=== PATIENT | female | born 2000 | race African-American/Black ===

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

== ENCOUNTER 2020-01-12 21:47 | Emergency (ER) | payer OTHER, MEDICAID ==
[~2020-01-12] VITALS: Ht 154.9 cm; Wt 48.5 kg
[2020-01-12 23:43] VITALS: BP 125/77
== END 2020-01-13 00:06 | disposition home or self-care (01) ==
LOC: ER 21:47
DX: J06.9 Acute upper respiratory infection, unspecified (principal)
CPT/HCPCS: 71045

== ENCOUNTER 2023-12-28 12:22 | Emergency (ER) | payer MEDICAID ==
[~2023-12-28] VITALS: Ht 152.4 cm; Wt 42.2 kg
[2023-12-28 13:41] LABS: Basophils # (auto) 0 10 ^3/uL (0-0.2); Basophils % (auto) 0.3 % (0.0-2.0); Eosinophils # (auto) 0.1 10 ^3/uL (0-0.8); Eosinophils % (auto) 1.2 % (0.0-7.0); Hematocrit 35.6 % (36.0-46.0); Hemoglobin 12.3 g/dL (12.2-16.2); Lymphocytes # (auto) 1.5 10 ^3/uL (0.4-5.4); Mean Corpuscular Hemoglobin 32.2 pg (28.0-32.0); Mean Corpuscular Hgb Conc. 34.7 g/dL (32.0-36.0); Mean Corpuscular Volume 92.8 fL (80.0-100.0); Monocytes # (auto) 0.5 10 ^3/uL (0-1.3); Monocytes % (auto) 6.9 % (0.0-12.0); Neutrophils # (auto) 4.5 10 ^3/uL (1.6-8.6); Neutrophils % (auto) 68.6 % (37.0-80.0); Nucleated Red Blood Cells % 0.1 %; Platelet Count (auto) 343 10^3/uL (140-450); Red Blood Cells 3.83 10^6/uL (4.0-5.20); Red Cell Distribution Width 12.9 % (11.8-14.3); White Blood Cell 6.6 10^3/uL (4.4-10.8)
[2023-12-28 13:56] LABS: Alanine Aminotransferase 23 U/L (7-40); Albumin 4.4 g/dL (3.2-4.8); Alkaline Phosphatase 55 U/L (46-116); Anion Gap 7 (5-15); Aspartate Aminotransferase 14 U/L (13-40); BUN/Creatinine Ratio 16.3 (10.0-20.0); Blood Urea Nitrogen 8 mg/dL (9-23); Calcium 9.6 mg/dL (8.7-10.4); Carbon Dioxide 22 mmol/L (20-31); Chloride 107 mmol/L (98-107); Glucose 85 mg/dL (74-106); Potassium 3.6 mmol/L (3.5-5.1); Sodium 136 mmol/L (136-145)
[2023-12-28 13:57] LABS: Bilirubin, Total 1.2 mg/dL (0.2-1.0); Total Protein 7.2 g/dL (5.7-8.2)
[2023-12-28 14:22] VITALS: BP 112/73; PULSE 93; RESP 16; TEMP 98.7; O2SAT 100
== END 2023-12-28 14:28 | disposition home or self-care (01) ==
LOC: ER 12:22
DX: O99.411 Diseases of the circulatory system complicating pregnancy, first trimester (principal); R10.2 Pelvic and perineal pain; O99.891 Other specified diseases and conditions complicating pregnancy; R55 Syncope and collapse; Z3A.11 11 weeks gestation of pregnancy; Z88.0 Allergy status to penicillin; W18.09XA Striking against other object with subsequent fall, initial encounter; Y93.89 Activity, other specified; Y92.89 Other specified places as the place of occurrence of the external cause; Y99.8 Other external cause status
CPT/HCPCS: 36415; 76801; 80053; 82962; 84702; 85025; 93005

== ENCOUNTER → 2023-12-30 | Outpatient (CLI) | payer MEDICAID ==
[2023-12-30 12:45] LABS: Basophils # (auto) 0 10 ^3/uL (0-0.2); Basophils % (auto) 0.2 % (0.0-2.0); Eosinophils # (auto) 0.1 10 ^3/uL (0-0.8); Eosinophils % (auto) 1.6 % (0.0-7.0); Hematocrit 36.1 % (36.0-46.0); Hemoglobin 12.4 g/dL (12.2-16.2); Lymphocytes % (auto) 28.7 % (10.0-50.0); Mean Corpuscular Hemoglobin 31.9 pg (28.0-32.0); Mean Corpuscular Hgb Conc. 34.4 g/dL (32.0-36.0); Mean Corpuscular Volume 92.8 fL (80.0-100.0); Monocytes # (auto) 0.5 10 ^3/uL (0-1.3); Monocytes % (auto) 7.1 % (0.0-12.0); Neutrophils # (auto) 4.3 10 ^3/uL (1.6-8.6); Neutrophils % (auto) 62.4 % (37.0-80.0); Platelet Count (auto) 367 10^3/uL (140-450); Red Blood Cells 3.89 10^6/uL (4.0-5.20); Red Cell Distribution Width 13.3 % (11.8-14.3); White Blood Cell 6.9 10^3/uL (4.4-10.8)
[2023-12-30 13:43] LABS: Alanine Aminotransferase 28 U/L (7-40); Albumin 4.8 g/dL (3.2-4.8); Alkaline Phosphatase 59 U/L (46-116); Anion Gap 6 (5-15); Aspartate Aminotransferase 17 U/L (13-40); BUN/Creatinine Ratio 16.4 (10.0-20.0); Bilirubin, Total 1.5 mg/dL (0.2-1.0); Blood Urea Nitrogen 9 mg/dL (9-23); Calcium 10.2 mg/dL (8.7-10.4); Carbon Dioxide 25 mmol/L (20-31); Chloride 104 mmol/L (98-107); Glucose 72 mg/dL (74-106); Potassium 3.6 mmol/L (3.5-5.1); Sodium 135 mmol/L (136-145)
[2023-12-30 13:44] LABS: Total Protein 7.8 g/dL (5.7-8.2)
[2023-12-30 13:46] LABS: Thyroid Stimulating Hormone 1.03 uIU/mL (0.55-4.78)
[2023-12-30 13:53] LABS: Beta HCG, Quantitative 151954.5 mIU/mL (1.5-4.2)
[2023-12-30 14:16] LABS: Amphetamine Screen, Urine Neg (NEGATIVE); Barbiturate Scree,Urine Neg (NEGATIVE); Benzodiazephine Screen, Urine Neg (NEGATIVE); Cannabinoid Screen, Urine Neg (NEGATIVE); Cocaine Screen, Urine Neg (NEGATIVE); Opiate Scree,Urine Neg (NEGATIVE); Phencyclidine Screen, Urine Neg (NEGATIVE)
[2023-12-31 06:07] LABS: Varicella Zoster IgG Antibody Reactive (Non Reactive)
[2023-12-31 07:07] LABS: RPR Non Reactive (Non Reactive)
[2023-12-31 18:06] LABS: Chlamydia Trachomatis, NAA Negative (Negative); Neisseria gonorrhoeae, NAA Negative (Negative)
== END | disposition home or self-care (01) ==
LOC: LAB 11:36
PROVIDERS: ATTEND Obstetrics & Gynecology
DX: Z34.00 Encounter for supervision of normal first pregnancy, unspecified trimester (principal); Z36.0 Encounter for antenatal screening for chromosomal anomalies; N39.0 Urinary tract infection, site not specified
CPT/HCPCS: 36415; 80053; 80307; 83036; 84439; 84443; 84702; 85025; 86592; 86703; 86762; 86787; 86850; 86900; 86901; 87086; 87340; 87902

== ENCOUNTER 2024-03-14 12:32 | Observation (INO) | payer MEDICAID ==
[2024-03-14] MEDS ORDERED: PREN-96 PO (12:57)
--- NOTE | 2024-03-16 10:00 | DVHDS2 ---
Physician Discharge Progress N Final Diagnosis: feb movement Operations or Procedures: Operations or Procedures nst,sono Condition on Discharge: Good Disposition: Home Discharge Instructions: Diet: Regular Activity: No Restrictions, As Tolerated Medications: na Follow Up Care: Specialist: 2d Discharge Statement: "Patient was advised to return to the ER or call 911 if any headaches, dizziness, shortness of breath, chest pain, abdominal pain, bleeding, fevers, or worsening of medical condition. Patient was counseled about treatment plan, medications, possible side effects, patientverbalized understanding. All questions were answered to the best of my ability. This discharge took greater then 30 minutes in planning, reviewing documentation, counseling the patient, and discussing with other team members." GLENNJOSE DO Mar 16, 2024 10:00
== END 2024-03-14 13:23 | disposition home or self-care (01) ==
LOC: LDRP 12:32
PROVIDERS: ADMIT Obstetrics & Gynecology; ATTEND Obstetrics & Gynecology
DX: O36.8120 Decreased fetal movements, second trimester, not applicable or unspecified (principal); Z98.890 Other specified postprocedural states; Z79.899 Other long term (current) drug therapy; Z88.0 Allergy status to penicillin; Z88.8 Allergy status to other drugs, medicaments and biological substances; Z3A.21 21 weeks gestation of pregnancy
CPT/HCPCS: 59025; 81002; 94760; G0378

== ENCOUNTER → 2024-05-15 | Outpatient (CLI) | payer MEDICAID ==
[~2024-05-15] MED LIST: PREN-96 PO
[2024-05-15 10:21] LABS: Basophils # (auto) 0 10 ^3/uL (0-0.2); Basophils % (auto) 0.2 % (0.0-2.0); Eosinophils # (auto) 0.1 10 ^3/uL (0-0.8); Eosinophils % (auto) 1.4 % (0.0-7.0); Lymphocytes # (auto) 1.6 10 ^3/uL (0.4-5.4); Lymphocytes % (auto) 22.4 % (10.0-50.0); Mean Corpuscular Hemoglobin 30.9 pg (28.0-32.0); Mean Corpuscular Hgb Conc. 34.2 g/dL (32.0-36.0); Mean Corpuscular Volume 90.5 fL (80.0-100.0); Monocytes # (auto) 0.5 10 ^3/uL (0-1.3); Monocytes % (auto) 7.8 % (0.0-12.0); Neutrophils # (auto) 4.8 10 ^3/uL (1.6-8.6); Neutrophils % (auto) 68.2 % (37.0-80.0); Platelet Count (auto) 237 10^3/uL (140-450); Red Cell Distribution Width 12.9 % (11.8-14.3)
[2024-05-15 11:10] LABS: Alanine Aminotransferase 23 U/L (7-40); Anion Gap 9 (5-15); BUN/Creatinine Ratio 12.3 (10.0-20.0); Calcium 9.7 mg/dL (8.7-10.4); Carbon Dioxide 23 mmol/L (20-31); Chloride 102 mmol/L (98-107); Glucose 85 mg/dL (74-106); Potassium 4.1 mmol/L (3.5-5.1)
[2024-05-15 11:12] LABS: Albumin 4.4 g/dL (3.2-4.8); Aspartate Aminotransferase 20 U/L (13-40)
[2024-05-15 11:13] LABS: Bilirubin, Total 0.9 mg/dL (0.2-1.0); Total Protein 7.1 g/dL (5.7-8.2)
[2024-05-15 11:15] LABS: Alkaline Phosphatase 184 U/L (46-116); Blood Urea Nitrogen 7 mg/dL (9-23); Sodium 134 mmol/L (136-145)
[2024-05-16 08:07] LABS: RPR Non Reactive (Non Reactive)
[2024-05-17 00:06] LABS: Chlamydia Trachomatis, NAA Negative (Negative); Neisseria gonorrhoeae, NAA Negative (Negative)
== END | disposition home or self-care (01) ==
LOC: LAB 09:55
PROVIDERS: ATTEND Nurse Practitioner Women's Health
DX: Z34.00 Encounter for supervision of normal first pregnancy, unspecified trimester (principal); Z3A.00 Weeks of gestation of pregnancy not specified
CPT/HCPCS: 36415; 80053; 82306; 82951; 83036; 85025; 86592; 86850; 86900; 86901

== ENCOUNTER 2024-06-26 09:58 | Observation (INO) | payer MEDICAID ==
--- NOTE | 2024-06-26 11:08 | DVH ---
LIMITED OB ULTRASOUND > 14 WKS: HISTORY: Possible SROM TECHNIQUE: Multiple real-time grayscale images of the gravid uterus with duplex Doppler color flow an d M-mode spectral analysis. TRANSDUCER: Transabdominal. FINDINGS: IUP single live fetus at 34 weeks 4 days based on composite averages of the BPD, head circumference, abdominal circumference and femur length Estimated weight 2362 grams heart rate 124 beats per minute KALEB 12.5 cm Cervix not well visualized. Cephalic Presentation Fundal Placenta without previa or abruption. IMPRESSION: IUP single live fetus at 34 weeks 4 days AUA corresponding to an MCKAY of 08/03/24.
[2024-06-26 12:03] LABS: Vaginal Bacteria Few; Vaginal Clue Cells None Seen; Vaginal Epithelial Cells Few; Vaginal Trichomonas Not Present
[2024-06-26] MEDS ORDERED: HYDR-4902 PO (12:10)
--- NOTE | 2024-06-26 12:52 | DVHDS2 ---
Physician Discharge Progress N Final Diagnosis: intact amniotic membranes Operations or Procedures: Operations or Procedures S: 24yo IUP@36.1wks, pt sent down from [facility] OB office for r/o SROM. Pt reports LOF at 0815, clear fluid and leaking since. +FM, denies UCs/VB. Reports lower abdominal pressure and tightening. O: VSS UA wnl NST reactive GBS swab collected SSE by RN: negative nitrazine and pooling SVE by RN: 0/0/-3 Laboratory Tests Test 06/26/24 11:00 Range/Units Placental Ajadt-3-[id number] Negative Vaginal WBC (Wet Prep) Few Vaginal RBC (Wet Prep) Rare Vaginal Epithelial Cells (Wet Prep) Few Vaginal Bacteria (Wet Prep) Few Vaginal Trichomonas (Wet Prep) Not present Vaginal Yeast (Wet Prep) None seen Vaginal Clue Cells (Wet Prep) None seen A: 24yo IUP@36.1wks intact amniotic membranes P: D/C home FKC/PTL precautions reviewed Dr. Collier consulted, agrees with POC. Other Interventions Other Interventions [place] [address] Ph: [phone] DIAGNOSTIC IMAGING Diagnostic Imaging Report : [id number] Signed PATIENT: JIM VILLANUEVA ACCT: [id number] UNIT: [id number] : 2000 LOC: [facility] ROOM / BED: [address] A AGE / SEX: 24 / F ADM STATUS: ADM IN SERVICE 1017 ORDERING PHYSICIAN: VIOLA CIFUENTES CNM PROCEDURE(s): OBUS - OB ULTRASOUND COMP GTR 14 WKS REASON: Possible SROM ORDER NUMBER(s): [id number], ACCESSION NUMBER(s): [id number] LIMITED OB ULTRASOUND > 14 WKS: HISTORY: Possible SROM TECHNIQUE: Multiple real-time grayscale images of the gravid uterus with duplex Doppler color flow and M-mode spectral analysis. TRANSDUCER: Transabdominal. FINDINGS: IUP single live fetus at 34 weeks 4 days based on composite averages of the BPD, head circumference, abdominal circumference and femur length Estimated weight 2362 grams heart rate 124 beats per minute KALEB 12.5 cm Cervix not well visualized. Cephalic Presentation Fundal Placenta without previa or abruption. IMPRESSION: IUP single live fetus at 34 weeks 4 days AUA corresponding to an MCKAY of 08/03/24. ATED BY: BARAK TOMAS MD DICTATED DATE/TIME: 06/26/24 110 SIGNED BY: BARAK TOMAS MD SIGNED DATE/TIME: 06/26/24 110 CC: Condition on Discharge: Stable Disposition: Home Discharge Instructions: Diet: Regular Activity: No Restrictions, As Tolerated Medications: see med list Follow Up Care: Specialist: f/u with visits at [facility] as scheduled in 1 wk Discharge Statement: "Patient was advised to return to the ER or call 911 if any headaches, dizziness, shortness of breath, chest pain, abdominal pain, bleeding, fevers, or worsening of medical condition. Patient was counseled about treatment plan, medications, possible side effects, patientverbalized understanding. All questions were answered to the best of my ability. This discharge took greater then 30 minutes in planning, reviewing documentation, counseling the patient, and discussing with other team members." Visit Coding OBGYN Date of Service: Jun 26, 2024 Billing Provider: VIOLA CIFUENTES CNM HOSIERY PAIRER Common Visit Codes: 79662-CHFNUOP OBS CARE (LOW) HOSIERY PAIRER Procedure Codes: 76287-43- NON-STRESS TEST VIOLA CIFUENTES CNM Jun 26, 2024 12:52
== END 2024-06-26 12:38 | disposition home or self-care (01) ==
LOC: LDRP 09:58 → UNDOADMOB 09:58 → LDRP 10:14
PROVIDERS: ADMIT Obstetrics & Gynecology; ATTEND Obstetrics & Gynecology
DX: O42.913 Preterm premature rupture of membranes, unspecified as to length of time between rupture and onset of labor, third trimester (principal); O62.9 Abnormality of forces of labor, unspecified; Z98.890 Other specified postprocedural states; Z79.899 Other long term (current) drug therapy; Z3A.36 36 weeks gestation of pregnancy
CPT/HCPCS: 59025; 76805; 81002; 84112; 87070; 87210; 94760; G0378

== ENCOUNTER 2024-07-03 02:41 | Observation (INO) | payer MEDICAID ==
[~2024-07-03] VITALS: Ht 152.4 cm; Wt 58.5 kg
--- NOTE | 2024-07-03 05:45 | DVHDS2 ---
Discharge Summary Date of Admission Jul 03, 2024 at 02:41 Date of Discharge: Jul 03, 2024 Admitting Diagnosis rule out labor Brief Hx & Hospital Course: Patient walked no change Condition at Discharge: Good Final Diagnosis/Problems List contractions 37 weeks no labor Discharge Disposition: Home Discharge Instruct/Medications Diet: Regular Activity: No Restrictions, As Tolerated Activity comment: Kick counts labor precautions Follow Up/Referral: prn or this week Discharge Statement: "Patient was advised to return to the ER or call 911 if any headaches, dizziness, shortness of breath, chest pain, abdominal pain, bleeding, fevers, or worsening of medical condition. Patient was counseled about treatment plan, medications, possible side effects, patientverbalized understanding. All questions were answered to the best of my ability. This discharge took greater then 30 minutes in planning, reviewing documentation, counseling the patient, and discussing with other team members." ASSESSMENT ASSESSMENT Assessment Visit Coding OBGYN Date of Service: Jul 03, 2024 Billing Provider: GONZÁLEZ MOJICA DO CENTER RECEPTIONIST Common Visit Codes: [id number] INP/OBS CARE(HIGH), 39287-SNA/OBS SAME DATE (LOW), 91823-HCJ/OBS SAME DATE (MOD) CENTER RECEPTIONIST Procedure Codes: 84768-20- NON-STRESS TEST GONZÁLEZ MOJICA DO Jul 03, 2024 05:45
== END 2024-07-03 05:21 | disposition home or self-care (01) ==
LOC: LDRP 02:41
PROVIDERS: ADMIT Obstetrics & Gynecology; ATTEND Obstetrics & Gynecology
DX: O62.9 Abnormality of forces of labor, unspecified (principal); Z79.899 Other long term (current) drug therapy; Z3A.37 37 weeks gestation of pregnancy
CPT/HCPCS: 81002; 94760; G0378

== ENCOUNTER 2024-07-04 18:30 | Observation (INO) | payer MEDICAID ==
[~2024-07-04] VITALS: Ht 154.9 cm; Wt 58.5 kg
--- NOTE | 2024-07-04 20:06 | DVH ---
OB ULTRASOUND <14 WEEKS: HISTORY: vaginal bleeding TECHNIQUE: Multiple real-time grayscale sonographic images of the pelvis with duplex Doppler color f low, spectral and M-mode analysis. TRANSDUCERS: C4-1 COMPARISON: None FINDINGS/IMPRESSION : Single live . Cephalic presentation. Placenta in fundal location. heart rate measures 118 beats per minute. Current KALEB: 10.9 cm. No placenta previa, abruption, or accreta seen at this time.
--- NOTE | 2024-07-07 08:18 | DVHDS2 ---
Physician Discharge Progress N Final Diagnosis: vag bleeding 37wks Operations or Procedures: Operations or Procedures nst,sono Condition on Discharge: Good Disposition: Home Discharge Instructions: Diet: Regular Activity: No Restrictions, As Tolerated Follow Up/Referral: KEEP CURRENT APPOINTMENT AT DR BAILEY OFFICE Medications: CONTINUE TAKING ALL CURRENT MEDICATIOS PREVISOUSLY PRESCRIBED BY DR BAILEY OFFICE. Follow Up Care: Specialist: 1d Discharge Statement: "Patient was advised to return to the ER or call 911 if any headaches, dizziness, shortness of breath, chest pain, abdominal pain, bleeding, fevers, or worsening of medical condition. Patient was counseled about treatment plan, medications, possible side effects, patientverbalized understanding. All questions were answered to the best of my ability. This discharge took greater then 30 minutes in planning, reviewing documentation, counseling the patient, and discussing with other team members." Visit Coding OBGYN Date of Service: Jul 05, 2024 Billing Provider: JOSE ELIZABETH DO PRINCIPAL ANDROID DEVELOPER Common Visit Codes: [id number] INP/OBS CARE (HIGH) PRINCIPAL ANDROID DEVELOPER Procedure Codes: 52942-15- NON-STRESS TEST JOSE ELIZABETH DO Jul 07, 2024 08:18
== END 2024-07-04 19:45 | disposition home or self-care (01) ==
LOC: LDRP 18:30
PROVIDERS: ADMIT Obstetrics & Gynecology; ATTEND Obstetrics & Gynecology
DX: O46.93 Antepartum hemorrhage, unspecified, third trimester (principal); Z3A.37 37 weeks gestation of pregnancy
CPT/HCPCS: 59025; 76815; 94760; G0378

== ENCOUNTER 2024-07-12 01:40 | Observation (INO) | payer MEDICAID ==
[~2024-07-12] VITALS: Ht 154.9 cm; Wt 59.0 kg
[2024-07-12] MEDS: ACETAMINOPHEN 325 MG TAB PO ONE (03:15)
[2024-07-12 03:36] LABS: Basophils # (auto) 0 10 ^3/uL (0-0.2); Basophils % (auto) 0.3 % (0.0-2.0); Eosinophils # (auto) 0.2 10 ^3/uL (0-0.8); Eosinophils % (auto) 2.3 % (0.0-7.0); Hematocrit 39.5 % (36.0-46.0); Hemoglobin 13.9 g/dL (12.2-16.2); Lymphocytes # (auto) 2.6 10 ^3/uL (0.4-5.4); Lymphocytes % (auto) 30.9 % (10.0-50.0); Mean Corpuscular Hemoglobin 31.3 pg (28.0-32.0); Mean Corpuscular Hgb Conc. 35.2 g/dL (32.0-36.0); Mean Corpuscular Volume 88.8 fL (80.0-100.0); Monocytes # (auto) 0.4 10 ^3/uL (0-1.3); Neutrophils # (auto) 5.2 10 ^3/uL (1.6-8.6); Neutrophils % (auto) 61.5 % (37.0-80.0); Nucleated Red Blood Cells % 0.1 %; Platelet Count (auto) 247 10^3/uL (140-450); Red Blood Cells 4.45 10^6/uL (4.0-5.20); Red Cell Distribution Width 13.1 % (11.8-14.3); White Blood Cell 8.5 10^3/uL (4.4-10.8)
[2024-07-12 03:39] LABS: Urine Bacteria FEW /hpf (None Seen); Urine Blood Negative /uL (Negative); Urine Clarity Clear (Clear); Urine Color Colorless (Yellow); Urine Protein, UAD Negative (Negative); Urine Specific Gravity 1.006 (1.001-1.035); Urine Squamous Epithelial Cell None Seen /hpf (<5); Urine Urobilinogen Normal (Negative); Urine WBC < 1 /HPF (0-5); Urine pH 6.5 (5.0-9.0)
[2024-07-12 03:40] LABS: Protein, Urine < 6.0 mg/dL (1-14)
[2024-07-12 03:41] LABS: Creatinine, Urine 22.13 mg/dL (30.0-125.0); Urine Protein/Creatinine Ratio 0.27
[2024-07-12 03:44] LABS: Alanine Aminotransferase 22 U/L (7-40); Albumin 4.3 g/dL (3.2-4.8); Anion Gap 9 (5-15); Aspartate Aminotransferase 25 U/L (13-40); BUN/Creatinine Ratio 15.5 (10.0-20.0); Bilirubin, Total 0.7 mg/dL (0.2-1.0); Blood Urea Nitrogen 11 mg/dL (9-23); Calcium 9.9 mg/dL (8.7-10.4); Carbon Dioxide 21 mmol/L (20-31); Chloride 105 mmol/L (98-107); Glucose 83 mg/dL (74-106); Potassium 4.2 mmol/L (3.5-5.1); Total Protein 7.4 g/dL (5.7-8.2); Uric Acid 8.7 mg/dL (3.1-7.8)
[2024-07-12 03:48] LABS: Alkaline Phosphatase 352 U/L (46-116); Sodium 135 mmol/L (136-145)
[2024-07-12 03:54] LABS: INR 0.9 (0.9-1.15); Partial Thromboplastin Time 23.9 SEC (24.5-34.5); Prothrombin Time 9.6 sec (9.3-11.8)
[2024-07-12 04:34] LABS: Amphetamine Screen, Urine Neg (NEGATIVE); Benzodiazephine Screen, Urine Neg (NEGATIVE)
[2024-07-12 04:35] LABS: Barbiturate Scree,Urine Neg (NEGATIVE); Cannabinoid Screen, Urine Neg (NEGATIVE); Cocaine Screen, Urine Neg (NEGATIVE); Opiate Scree,Urine Neg (NEGATIVE); Phencyclidine Screen, Urine Neg (NEGATIVE)
--- NOTE | 2024-07-12 05:08 | DVH ---
BIOPHYSICAL PROFILE HISTORY: Rule Out Preeclampsia Comparison Study: 07/04/2024 TECHNIQUE: Multiple real-time grayscale sonographic images through the gravid uterus of the fetus wi th duplex Doppler color flow and M-mode spectral analysis FINDINGS: BIOPHYSICAL PROFILE: breathing score: 2 movement score: 2 tone score: 2 Quantitative KALEB score: 2 (KALEB: 8.4 Cm.) Total score: 8 The cervix is not visualized Single live fetus in cephalic presentation. heart rate 123 beats per minute. Fundal placenta without previa or abruption IMPRESSION: Biophysical profile score: 8
--- NOTE | 2024-07-12 12:30 | DVHDS2 ---
Physician Discharge Progress N Final Diagnosis: Not in labor francisca garcia contractions Operations or Procedures: Operations or Procedures S: 24yo IUP@38.3wks presents to OB triage with c/o UCs that started tonight. Denies LOF/VB/vision changes/RUQ pain. Endorses +FM. PNC at [facility] OB office, uncomplicated. O: VSS, normotensive EFM: FHR baseline 120s, moderate variability, +accels, -decels TOCO: irregular UCs Tylenol PO given, REED resolved per pt SVE by RN: initially 60-70/-2 then ambulated for 1 hour and recheck was unchanged Urine P/C ratio is incalculable Laboratory Tests Test 07/12/24 01:40 07/12/24 03:10 Range/Units Urine Color Colorless Yellow Urine Clarity Clear Clear Urine pH 6.5 5.0-9.0 Urine Specific [place] 1.006 1.001-1.035 Urine Protein Negative Negative Urine Ketones Negative Negative Urine Blood Negative Negative /uL Urine Nitrite Negative Negative Urine Bilirubin Negative Negative Urine Urobilinogen Normal Negative mg/dL Urine Leukocyte Esterase Negative Negative /uL Urine RBC None seen 0 - 4 /hpf Urine Microscopic WBC < 1 0-5 /HPF Urine Squamous Epithelial Cells None seen <5 /hpf Urine Bacteria Few H None Seen /hpf Urine Creatinine 22.13 L 30.0-125.0 mg/dL -U-r-i-n-e- -K-z-t-t-e-i-n-/-C--n-h-w-y-r-g-i-n-e- -R-a-t-i-o- -0-.-2-7- Urine Glucose Normal Normal mg/dL Urine Total Protein < 6.0 1-14 mg/dL Urine Opiates Screen Neg NEGATIVE Urine Fentanyl Screen Neg NEGATIVE Urine Barbiturates Screen Neg NEGATIVE Urine Phencyclidine Screen Neg NEGATIVE Urine Amphetamines Screen Neg NEGATIVE Urine Benzodiazepines Screen Neg NEGATIVE Urine Cocaine Screen Neg NEGATIVE Urine Cannabinoids Screen Neg NEGATIVE White Blood Count 8.5 4.4-10.8 10^3/uL Red Blood Count 4.45 4.0-5.20 10^6/uL Hemoglobin 13.9 12.2-16.2 g/dL Hematocrit 39.5 36.0-46.0 % Mean Corpuscular Volume 88.8 80.0-100.0 fL Mean Corpuscular Hemoglobin 31.3 28.0-32.0 pg Mean Corpuscular Hemoglobin Concent 35.2 32.0-36.0 g/dL Red Cell Distribution Width 13.1 11.8-14.3 % Platelet Count 247 140-450 10^3/uL Mean Platelet Volume 8.8 6.9-10.8 fL Neutrophils (%) (Auto) 61.5 37.0-80.0 % Lymphocytes (%) (Auto) 30.9 10.0-50.0 % Monocytes (%) (Auto) 5.0 0.0-12.0 % Eosinophils (%) (Auto) 2.3 0.0-7.0 % Basophils (%) (Auto) 0.3 0.0-2.0 % Neutrophils # (Auto) 5.2 1.6-8.6 10 ^3/uL Lymphocytes # (Auto) 2.6 0.4-5.4 10 ^3/uL Monocytes # (Auto) 0.4 0-1.3 10 ^3/uL Eosinophils # (Auto) 0.2 0-0.8 10 ^3/uL Basophils # (Auto) 0 0-0.2 10 ^3/uL Nucleated Red Blood Cells 0.1 % Prothrombin Time 9.6 9.3-11.8 sec Prothrombin Time INR 0.90 0.9-1.15 Activated Partial Thromboplast Time 23.9 L 24.5-34.5 SEC Sodium Level 135 L 136-145 mmol/L Potassium Level 4.2 3.5-5.1 mmol/L Chloride Level 105 98-107 mmol/L Carbon Dioxide Level 21 20-31 mmol/L Anion Gap 9 5-15 Blood Urea Nitrogen 11 9-23 mg/dL Creatinine 0.71 0.550-1.02 mg/dL Glomerular Filtration Rate Calc 121 >90 mL/min BUN/Creatinine Ratio 15.5 10.0-20.0 Serum Glucose 83 74-106 mg/dL Uric Acid 8.7 H 3.1-7.8 mg/dL Calcium Level 9.9 8.7-10.4 mg/dL Total Bilirubin 0.7 0.2-1.0 mg/dL Aspartate Amino Transferase (AST) 25 13-40 U/L Alanine Aminotransferase (ALT) 22 7-40 U/L Alkaline Phosphatase 352 H 46-116 U/L Total Protein 7.4 5.7-8.2 g/dL Albumin 4.3 3.2-4.8 g/dL A: 24yo IUP@38.3wks Category I EFM tracing Not in labor francisca garcia contractions P: D/C home FKC/PreE/labor precautions reviewed Other Interventions Other Interventions [place] [id number] Ph: [phone] DIAGNOSTIC IMAGING Diagnostic Imaging Report : [id number] Signed PATIENT: JIM VILLANUEVA ACCT: [id number] UNIT: [id number] : 2000 LOC: [facility] ROOM / BED: [facility] / A AGE / SEX: 24 / F ADM STATUS: ADM IN SERVICE 7 ORDERING PHYSICIAN: VIOLA CIFUENTES CNM PROCEDURE(s): BPP - BIOPHYSICAL PROFILE REASON: Rule Out Preeclampsia ORDER NUMBER(s): [id number], ACCESSION NUMBER(s): [id number] BIOPHYSICAL PROFILE HISTORY: Rule Out Preeclampsia Comparison Study: 07/04/2024 TECHNIQUE: Multiple real-time grayscale sonographic images through the gravid uterus of the fetus with duplex Doppler color flow and M-mode spectral analysis FINDINGS: BIOPHYSICAL PROFILE: breathing score: 2 movement score: 2 tone score: 2 Quantitative KALEB score: 2 (KALEB: 8.4 Cm.) Total score: 8 The cervix is not visualized Single live fetus in cephalic presentation. heart rate 123 beats per minute. Fundal placenta without previa or abruption IMPRESSION: Biophysical profile score: 8 ATED BY: ROGERIO ARIZA MD DICTATED DATE/TIME: 07/12/24504 SIGNED BY: ROGERIO ARIZA MD SIGNED DATE/TIME: 07/12/24504 CC: Condition on Discharge: Stable Disposition: Home Discharge Instructions: Diet: Regular Activity: No Restrictions, As Tolerated Medications: see med list Follow Up Care: Specialist: f/u on 07/16/24 morning with 24 hour urine collection to check protein levels and NST/BPP Discharge Statement: "Patient was advised to return to the ER or call 911 if any headaches, dizziness, shortness of breath, chest pain, abdominal pain, bleeding, fevers, or worsening of medical condition. Patient was counseled about treatment plan, medications, possible side effects, patientverbalized understanding. All questions were answered to the best of my ability. This discharge took greater then 30 minutes in planning, reviewing documentation, counseling the patient, and discussing with other team members." Visit Coding OBGYN Date of Service: Jul 12, 2024 Billing Provider: VIOLA CIFUENTES CNM BODY SHOP WORKER Common Visit Codes: 54246-[id number] OBS CARE (HIGH) BODY SHOP WORKER Procedure Codes: 45999-79- NON-STRESS TEST VIOLA CIFUENTES CNM Jul 12, 2024 12:30
[2024-07-18] MEDS ORDERED: PREN-96 PO (00:44)
[2024-07-18] MEDS ORDERED: IBU600T PO (00:44)
[2024-07-18] MEDS ORDERED: PRENCAP69 PO (00:44)
== END 2024-07-12 05:21 | disposition home or self-care (01) ==
LOC: LDRP 01:40
PROVIDERS: ADMIT Obstetrics & Gynecology; ATTEND Obstetrics & Gynecology
DX: O47.1 False labor at or after 37 completed weeks of gestation (principal); R79.1 Abnormal coagulation profile; Z98.890 Other specified postprocedural states; Z79.899 Other long term (current) drug therapy; Z3A.38 38 weeks gestation of pregnancy
CPT/HCPCS: 36415; 59025; 76819; 80053; 80307; 81001; 81002; 82570; 84156; 84550; 85025; 85610; 85730; 86850; 86900; 86901; 94760; G0378

== ENCOUNTER 2024-07-16 07:00 | Inpatient (IN) | payer MEDICAID ==
[~2024-07-16] VITALS: Ht 33 cm; Wt 0.5 kg
[2024-07-16 13:51] LABS: Urine Bacteria FEW /hpf (None Seen); Urine Blood Negative /uL (Negative); Urine Clarity Turbid (Clear); Urine Color Yellow (Yellow); Urine Protein, UAD TRACE (Negative); Urine Squamous Epithelial Cell FEW /hpf (<5); Urine Urobilinogen Normal (Negative); Urine WBC 2 /HPF (0-5); Urine pH 6.5 (5.0-9.0)
[2024-07-16 14:04] LABS: Protein, Urine 26.1 mg/dL (1-14)
[2024-07-16 14:06] LABS: Creatinine, Urine 140.65 mg/dL (30.0-125.0); Urine Protein/Creatinine Ratio 0.19
--- NOTE | 2024-07-16 14:06 | DVH ---
BIOPHYSICAL PROFILE HISTORY: PIH TECHNIQUE: Multiple transabdominal real-time grayscale sonographic images through the gravid uterus of the fetus with duplex Doppler color flow and M-mode spectral analysis FINDINGS: BIOPHYSICAL PROFILE: breathing score: 2/2 movement score: 2/2 tone score: 2/2 Quantitative KALEB score: 2/2 (KALEB: 8.6 Cm.) Total score: 8/8 The cervix close Single live fetus in cephalic presentation. heart rate 144 beats per minute. Fundal placenta without previa or abruption IMPRESSION: 1. Biophysical profile score: 8/8 2. The amniotic fluid index is decreased slightly from previous exam done 07/04/2024 from 10.9 cm 28. 6 cm.
[2024-07-16 14:12] LABS: Basophils # (auto) 0 10 ^3/uL (0-0.2); Basophils % (auto) 0.3 % (0.0-2.0); Eosinophils # (auto) 0.1 10 ^3/uL (0-0.8); Eosinophils % (auto) 1.8 % (0.0-7.0); Hematocrit 38.6 % (36.0-46.0); Hemoglobin 13.4 g/dL (12.2-16.2); Lymphocytes # (auto) 1.8 10 ^3/uL (0.4-5.4); Lymphocytes % (auto) 32.5 % (10.0-50.0); Mean Corpuscular Hgb Conc. 34.7 g/dL (32.0-36.0); Mean Corpuscular Volume 89.4 fL (80.0-100.0); Monocytes # (auto) 0.5 10 ^3/uL (0-1.3); Monocytes % (auto) 8.2 % (0.0-12.0); Neutrophils # (auto) 3.2 10 ^3/uL (1.6-8.6); Neutrophils % (auto) 57.2 % (37.0-80.0); Nucleated Red Blood Cells % 0.1 %; Platelet Count (auto) 209 10^3/uL (140-450); Red Blood Cells 4.31 10^6/uL (4.0-5.20); Red Cell Distribution Width 13.2 % (11.8-14.3); White Blood Cell 5.5 10^3/uL (4.4-10.8)
[2024-07-16 14:30] LABS: INR 0.92 (0.9-1.15); Partial Thromboplastin Time 24.5 SEC (24.5-34.5); Prothrombin Time 9.8 sec (9.3-11.8)
[2024-07-16 14:34] LABS: Alanine Aminotransferase 22 U/L (7-40); Albumin 3.9 g/dL (3.2-4.8); Anion Gap 8 (5-15); Aspartate Aminotransferase 26 U/L (13-40); BUN/Creatinine Ratio 14.9 (10.0-20.0); Blood Urea Nitrogen 11 mg/dL (9-23); Calcium 9.4 mg/dL (8.7-10.4); Carbon Dioxide 23 mmol/L (20-31); Chloride 106 mmol/L (98-107); Potassium 4.2 mmol/L (3.5-5.1); Sodium 137 mmol/L (136-145); Total Protein 6.5 g/dL (5.7-8.2)
[2024-07-16 14:35] LABS: Bilirubin, Total 0.8 mg/dL (0.2-1.0)
[2024-07-16 14:38] LABS: Alkaline Phosphatase 354 U/L (46-116); Glucose 60 mg/dL (74-106); Uric Acid 9.8 mg/dL (3.1-7.8)
[2024-07-16 14:41] LABS: Protein, Urine < 6.0 mg/dL (1-14)
[2024-07-16 14:43] LABS: Urine Total Volume, 24 Hours 4700 mL
[2024-07-16] MEDS ORDERED: LIDOCAINE 2%HCL (LOCAL ANESTH.) INJ 20ML MDV IJ PRN (15:15)
[2024-07-16] MEDS ORDERED: BUTORPHANOL TARTRATE 2 MG/1 ML VIAL IV PRN ×2 (15:15)
[2024-07-16] MEDS ORDERED: PENICILLIN G POT 5MIL/D5 50ML 50 ML IV ONE (15:30)
[2024-07-16] MEDS: PHISODERM TOP SOLN 240ML BTL TOP PRN (19:30)
[2024-07-16] MEDS ORDERED: PENICILLIN G POTASSIUM 2,500,000 UNITS in D5W 5% 50 ML IV SCH (19:30)
[2024-07-16] MEDS: WITCH HAZEL-GLYCERIN PAD TOP PRN (19:30)
[2024-07-16] MEDS: miSOPROStol 50 MCG per PRE-CUT 1/2 TAB PO PRN (19:30)
[2024-07-16] MEDS: DERMOPLAST 60ML BOTTLE TOP PRN (19:30)
--- NOTE | 2024-07-16 22:38 | DVHHP2 ---
OB CC & HPI Patient Identification: : 1 Para: 0 EDC: July 23, 2024 EGA: 39 Chief Complaints: Reason for admission: induction of labor (pih) Indication for induction: other (pih) Admission Nurse Assessment Rev: Yes Past Medical History Cardiac: No pertinent Hx Pulmonary: No pertinent Hx Central Nervous System: No pertinent Hx GI: No pertinent Hx Hemotology/Oncology: No pertinent Hx Hepatobiliary: No pertinent Hx Psychiatric: No pertinent Hx Musculoskeletal: No pertinent Hx Rheumotologic: No pertinent Hx Infectious Disease: No peritnent Hx ENT: No pertinent Hx Renal/: No pertinent Hx Endocrine: No pertinent Hx Dermatology: No pertinent Hx OB History OB History Care: Good Care Obstetrical Complications: Pre-eclampsia Allergies: Coded Allergies: Amoxicillin (Verified Allergy, Unknown, 11/18/16) Penicillins (Verified Allergy, Unknown, 11/18/16) Home Meds Reported Medications Vit W/ Ferrous Fumara ( One Daily) Daily Tab, 1 TAB PO DAILY, #90 TAB 3 Refills 03/14/24 Current Medications Current Medications Medications (Trade) Dose Ordered Sig/Lala Route PRN Reason Start Time Stop Time Status Last Admin Lactated Ringer's 1,000 ml @ 125 mls/hr Q8H IV 07/16/24 15:15 Witch Maci (Tucks) 1 pad PRN PRN TOP PERINEAL AREA DISCOMFORT 07/16/24 15:15 07/16/24 19:30 Sodium Lauryl Sulfate (Phisoderm) 240 ml PRN PRN TOP PERINEAL AREA DISCOMFORT 07/16/24 15:15 07/16/24 19:30 Benzocaine (Dermoplast) 1 applic PRN PRN TOP PERINEAL AREA DISCOMFORT 07/16/24 15:15 07/16/24 19:30 Butorphanol Tartrate (Stadol Injection) 1 mg Q4HPRN PRN IV MODERATE PAIN (4-6 PAIN SCALE) 07/16/24 15:15 Butorphanol Tartrate (Stadol Injection) 2 mg Q4HPRN PRN IV SEVERE PAIN (7-10 PAIN SCALE) 07/16/24 15:15 Lidocaine HCl (Xylocaine) 20 ml ONCE PRN IJ PERINEAL AREA DISCOMFORT 07/16/24 15:15 Penicillin G Potassium [id number] units/Dextrose 50 ml @ 100 mls/hr Q4H IV 07/16/24 19:30 UNV Clindamycin Phosphate 50 ml @ 50 mls/hr Q8HR IV 07/16/24 22:00 Misoprostol (Cytotec) 50 mcg Q4HPRN PRN PO CERVICAL RIPENING 07/16/24 17:45 07/16/24 19:30 Family & Social History Family/Social History Blood Type: A+ Rubella: immune RPR/VDRL: Negative GBS Status: Unknown HBsAG: Unknown Review of Systems Constitutional: No symptom reported Ears, Nose, & Throat: No symptom reported Eyes: No symptom reported Pulmonary/Respiratory: No symptom reported Cardiovascular: No symptom reported Gastrointestinal: No symptom reported Genitourinary: No symptom reported Musculoskeletal: No symptom reported Skin: No symptom reported Psychiatric: No symptom reported Endocrine: No symptom reported Hemotologic/Lymphatic: No symptom reported OB Admission Exam Physical Exam HEENT: TMs Normal, Fontanelles Normal, Nasal Mucosa Normal, Eyes non-injected, Oropharynx Normal, PERRLA, Moist Membranes, EOMI Heart: Rhythm Normal Lungs: Clear Abdomen: Non tender Extremities: Normal Reflexes: Normal Cervical Dilatation: 2cm Effacement: 50% Station: -1 Membranes: Intact Heart Rate: 130's Accelerations: Accelerations Present Decelerations: No Decelerations Short Term Variability: Present [facility] Variability: Average (6-25) Contractions on Admission: None Intensity: Mild OB Plan Plan Admitting Diagnosis: induction for pih 39 weeks. Plan: Induction Induction Methd: Cervidal protocol, Prostin protocol Other Plan: Cytotec induction, risks benefits complications alternatives discussed as also the risks of increase for C section and associated risks. Visit Coding OBGYN Date of Service: Jul 16, 2024 Billing Provider: GONZÁLEZ MOJICA DO WOODS RIDER Common Visit Codes: 35870-KBC/OBS SAME DATE (HIGH) WOODS RIDER Consultation Codes: 27626-L/U INPATIENT CONSULT (HIGH) WOODS RIDER Procedure Codes: 47042-19- NON-STRESS TEST GONZÁLEZ MOJICA DO Jul 16, 2024 22:38
[2024-07-17] MEDS: LACTATED RINGER'S 1,000 ML IV SCH (01:06)
--- NOTE | 2024-07-17 06:09 | DVHPN2 ---
Chief Complaints Patient reports: No new complaints, Feels better Nursing reports: No new complaints, No abdominal pain, No chest pain, No dizziness, No cough Objective Medications Current Medications Medications (Trade) Dose Ordered Sig/Lala Route PRN Reason Start Time Stop Time Status Last Admin Benzocaine (Dermoplast) 1 applic PRN PRN TOP PERINEAL AREA DISCOMFORT 07/16/24 15:15 07/16/24 19:30 Butorphanol Tartrate (Stadol Injection) 1 mg Q4HPRN PRN IV MODERATE PAIN (4-6 PAIN SCALE) 07/16/24 15:15 Butorphanol Tartrate (Stadol Injection) 2 mg Q4HPRN PRN IV SEVERE PAIN (7-10 PAIN SCALE) 07/16/24 15:15 Clindamycin Phosphate 50 ml @ 50 mls/hr Q8HR IV 07/16/24 22:00 Lactated Ringer's 1,000 ml @ 125 mls/hr Q8H IV 07/16/24 15:15 07/17/24 01:06 Lidocaine HCl (Xylocaine) 20 ml ONCE PRN IJ PERINEAL AREA DISCOMFORT 07/16/24 15:15 Misoprostol (Cytotec) 50 mcg Q4HPRN PRN PO CERVICAL RIPENING 07/16/24 17:45 07/17/24 02:05 Penicillin G Potassium [id number] units/Dextrose 50 ml @ 100 mls/hr Q4H IV 07/16/24 19:30 UNV Sodium Lauryl Sulfate (Phisoderm) 240 ml PRN PRN TOP PERINEAL AREA DISCOMFORT 07/16/24 15:15 07/16/24 19:30 Sal Wallerel (Tucks) 1 pad PRN PRN TOP PERINEAL AREA DISCOMFORT 07/16/24 15:15 07/16/24 19:30 General: Normal Lungs: Normal Cardiovascular: Normal Abdominal: Normal Extremities: Normal Skin: Normal Neurological: Normal Studies Laboratory Tests 07/16/24 13:53 Test 07/16/24 13:53 Range/Units Serum Glucose 60 L 74-106 mg/dL Ass/Plan Assessment Hospital day 2 induction PIH Plan Repeat Cytotec and/or Pitocin GONZÁLEZ MOJICA DO Jul 17, 2024 06:09
--- NOTE | 2024-07-17 07:37 | DVHPN2 ---
CNM Labor Progress Note Date and Time Seen Date Seen: Jul 17, 2024 Time Seen: 07:30 Subjective Subjective Comment Pt has mild UC pain, tolerable. Denies REED/vision changes/RUQ pain. Objective Vital Signs VSS, see CPN Monitoring Method Monitoring Method: External Heart Rate Heart Rate Baseline: 120 Heart Rate Variability: Moderate Presence of FHR Accelerations: Yes Presence of FHR Decelerations: No Changes in Trends of Patterns: No Are all 5 Components of the FH: Yes Contractions Contractions Frequency: Other (q5 min) Duration of Contraction: 80 Contractions Intensity: Mild Contractions Resting Tone: Relaxed Membranes Membranes: Intact Vaginal Exam Vag Exam Deferred: Yes (SVE by RN: 2.5/80/-3) Medications Medications - Pitocin: No Medications - Pain Medications: PRN Medication - Epidural: No Medication - Other Cytotec 3 doses received Lab Results Lab Results Current Medications Medications (Trade) Dose Ordered Sig/Lala Start Time Stop Time Status Last Admin Dose Admin Lactated Ringer's 1,000 ml @ 125 mls/hr Q8H 07/16/24 15:15 07/17/24 09:04 125 MLS/HR Witch Maci (Tucks) 1 pad PRN PRN 07/16/24 15:15 07/16/24 19:30 1 PAD Sodium Lauryl Sulfate (Phisoderm) 240 ml PRN PRN 07/16/24 15:15 07/16/24 19:30 240 ML Benzocaine (Dermoplast) 1 applic PRN PRN 07/16/24 15:15 07/16/24 19:30 1 APPLIC Butorphanol Tartrate (Stadol Injection) 1 mg Q4HPRN PRN 07/16/24 15:15 Butorphanol Tartrate (Stadol Injection) 2 mg Q4HPRN PRN 07/16/24 15:15 Lidocaine HCl (Xylocaine) 20 ml ONCE PRN 07/16/24 15:15 Clindamycin Phosphate 50 ml @ 50 mls/hr Q8HR 07/16/24 22:00 Misoprostol (Cytotec) 50 mcg Q4HPRN PRN 07/16/24 17:45 07/17/24 06:51 50 MCG Laboratory Tests Test 07/16/24 15:30 07/16/24 13:53 07/16/24 13:32 07/16/24 13:16 Range/Units Treponema pallidum Antibody Non-reactive Negative White Blood Count 5.5 # 4.4-10.8 10^3/uL Red Blood Count 4.31 4.0-5.20 10^6/uL Hemoglobin 13.4 12.2-16.2 g/dL Hematocrit 38.6 36.0-46.0 % Mean Corpuscular Volume 89.4 80.0-100.0 fL Mean Corpuscular Hemoglobin 31.0 28.0-32.0 pg Mean Corpuscular Hemoglobin Concent 34.7 32.0-36.0 g/dL Red Cell Distribution Width 13.2 11.8-14.3 % Platelet Count 209 140-450 10^3/uL Mean Platelet Volume 9.0 6.9-10.8 fL Neutrophils (%) (Auto) 57.2 37.0-80.0 % Lymphocytes (%) (Auto) 32.5 10.0-50.0 % Monocytes (%) (Auto) 8.2 0.0-12.0 % Eosinophils (%) (Auto) 1.8 0.0-7.0 % Basophils (%) (Auto) 0.3 0.0-2.0 % Neutrophils # (Auto) 3.2 1.6-8.6 10 ^3/uL Lymphocytes # (Auto) 1.8 0.4-5.4 10 ^3/uL Monocytes # (Auto) 0.5 0-1.3 10 ^3/uL Eosinophils # (Auto) 0.1 0-0.8 10 ^3/uL Basophils # (Auto) 0 0-0.2 10 ^3/uL Nucleated Red Blood Cells 0.1 % Prothrombin Time 9.8 9.3-11.8 sec Prothrombin Time INR 0.92 0.9-1.15 Activated Partial Thromboplast Time 24.5 24.5-34.5 SEC Sodium Level 137 136-145 mmol/L Potassium Level 4.2 3.5-5.1 mmol/L Chloride Level 106 98-107 mmol/L Carbon Dioxide Level 23 20-31 mmol/L Anion Gap 8 5-15 Blood Urea Nitrogen 11 9-23 mg/dL Creatinine 0.74 0.550-1.02 mg/dL Glomerular Filtration Rate Calc 115 >90 mL/min BUN/Creatinine Ratio 14.9 10.0-20.0 Serum Glucose 60 L 74-106 mg/dL Uric Acid 9.8 H 3.1-7.8 mg/dL Calcium Level 9.4 8.7-10.4 mg/dL Total Bilirubin 0.8 0.2-1.0 mg/dL Aspartate Amino Transferase (AST) 26 13-40 U/L Alanine Aminotransferase (ALT) 22 7-40 U/L Alkaline Phosphatase 354 H 46-116 U/L Total Protein 6.5 5.7-8.2 g/dL Albumin 3.9 3.2-4.8 g/dL Urine Color Yellow Yellow Urine Clarity Turbid H Clear Urine pH 6.5 5.0-9.0 Urine Specific [place] 1.020 1.001-1.035 Urine Protein Trace H Negative Urine Ketones Trace Negative Urine Blood Negative Negative /uL Urine Nitrite Negative Negative Urine Bilirubin Negative Negative Urine Urobilinogen Normal Negative mg/dL Urine Leukocyte Esterase Negative Negative /uL Urine RBC 1 0 - 4 /hpf Urine Microscopic WBC 2 0-5 /HPF Urine Squamous Epithelial Cells Few <5 /hpf Urine Bacteria Few H None Seen /hpf Urine Glucose Normal Normal mg/dL Urine Creatinine 140.65 H 30.0-125.0 mg/dL Urine Protein/Creatinine Ratio 0.19 Urine Total Protein 26.1 H 1-14 mg/dL Test 07/16/24 13:14 Range/Units Urine Total Protein 24 Hour <149.1 mg/24 Hr Assessment Assessment A: 24yo IUP@39.0wks Induction of Labor for PIH Category I EFM Intact Membranes GBS unknown Plan Plan P: Continue with PO cytotec Start IV clindamycin for GBS prophylaxis. Pt allergic to PCN/ampicillin, reaction is rash all over her body. monitoring per order Pain mgmt PRN Frequent position changes in and out of bed encouraged Limit SVE unless necessary Intrauterine resuscitation PRN Anticipate CNM co-managing with Dr. Collier Plan discussed with: Patient Visit Coding OBGYN Date of Service: Jul 17, 2024 Billing Provider: VIOLA CIFUENTES CNM LACING OPERATOR Common Visit Codes: [id number] INP/OBS CARE(HIGH) VIOLA CIFUENTES CNM Jul 17, 2024 07:36
[2024-07-17] MEDS: CLINDAMYCIN 900MG IV 50 ML IV SCH (09:43)
[2024-07-17] MEDS ORDERED: LACT. RINGERS/OXYTOCIN 20UNITS 1,000 ML IV SCH (11:15)
[2024-07-17] MEDS ORDERED: LACT. RINGERS/OXYTOCIN 20UNITS 500 ML IV ONE (11:15)
[2024-07-17] MEDS ORDERED: ePHEDrine SULFATE 50 MG/ML AMP IV ONE (13:15)
[2024-07-17] MEDS ORDERED: LACTATED RINGER'S 1,000 ML IV ONE (13:15)
[2024-07-17] MEDS ORDERED: NALOXONE HCL 0.4 MG/ML VIAL IV ONE (13:15)
[2024-07-17] MEDS ORDERED: ROPIVACAINE HCL 200 ML ONE (13:16)
--- NOTE | 2024-07-17 16:50 | DVHPN2 ---
[facility] Labor Progress Note Date and Time Seen Date Seen: Jul 17, 2024 Time Seen: 11:00 Subjective Patient reports: No new complaints Subjective Comment Denies REED/vision changes/RUQ pain Objective Vital Signs VSS, see CPN Monitoring Method Monitoring Method: External Heart Rate Heart Rate Baseline: 130 Heart Rate Variability: Moderate Presence of FHR Accelerations: Yes Presence of FHR Decelerations: No Changes in Trends of Patterns: No Are all 5 Components of the FH: Yes Contractions Contractions Frequency: Other (q1.5-4min) Duration of Contraction: 80 Contractions Intensity: Moderate Contractions Resting Tone: Relaxed Membranes Membranes: Intact Vaginal Exam Vag Exam Deferred: Yes (SVE by RN: 85/-1) Medications Medications - Pitocin: No Medications - Pain Medications: PRN Medication - Epidural: No Medication - Other 3 doses of cytotec received Lab Results Lab Results Current Medications Medications (Trade) Dose Ordered Sig/Lala Start Time Stop Time Status Last Admin Dose Admin Lactated Ringer's 1,000 ml @ 125 mls/hr Q8H 07/16/24 15:15 07/17/24 09:04 125 MLS/HR Witch Maci (Tucks) 1 pad PRN PRN 07/16/24 15:15 07/16/24 19:30 1 PAD Sodium Lauryl Sulfate (Phisoderm) 240 ml PRN PRN 07/16/24 15:15 07/16/24 19:30 240 ML Benzocaine (Dermoplast) 1 applic PRN PRN 07/16/24 15:15 07/16/24 19:30 1 APPLIC Butorphanol Tartrate (Stadol Injection) 1 mg Q4HPRN PRN 07/16/24 15:15 Butorphanol Tartrate (Stadol Injection) 2 mg Q4HPRN PRN 07/16/24 15:15 Lidocaine HCl (Xylocaine) 20 ml ONCE PRN 07/16/24 15:15 Clindamycin Phosphate 50 ml @ 50 mls/hr Q8HR 07/16/24 22:00 07/17/24 09:43 50 MLS/HR Misoprostol (Cytotec) 50 mcg Q4HPRN PRN 07/16/24 17:45 07/17/24 06:51 50 MCG Oxytocin 1,000 ml @ 6 ml/hr Q24H 07/17/24 11:15 Oxytocin 500 ml @ 999 mls/hr Q31M ONCE 07/17/24 11:15 07/17/24 11:45 DC Oxytocin 500 ml @ 125 mls/hr Q4H ONCE 07/17/24 11:45 07/17/24 15:44 DC Naloxone HCl (Narcan) 0.2 mg PRN ONCE 07/17/24 13:15 07/17/24 13:28 DC Ephedrine Sulfate (ePHEDrine SULFATE) 10 mg PRN ONCE 07/17/24 13:15 07/17/24 13:28 DC Lactated Ringer's 1,000 ml @ 1,000 mls/hr Q1H ONCE 07/17/24 13:15 07/17/24 14:14 DC Laboratory Tests Test 07/16/24 15:30 07/16/24 13:53 07/16/24 13:32 07/16/24 13:16 Range/Units Treponema pallidum Antibody Non-reactive Negative White Blood Count 5.5 # 4.4-10.8 10^3/uL Red Blood Count 4.31 4.0-5.20 10^6/uL Hemoglobin 13.4 12.2-16.2 g/dL Hematocrit 38.6 36.0-46.0 % Mean Corpuscular Volume 89.4 80.0-100.0 fL Mean Corpuscular Hemoglobin 31.0 28.0-32.0 pg Mean Corpuscular Hemoglobin Concent 34.7 32.0-36.0 g/dL Red Cell Distribution Width 13.2 11.8-14.3 % Platelet Count 209 140-450 10^3/uL Mean Platelet Volume 9.0 6.9-10.8 fL Neutrophils (%) (Auto) 57.2 37.0-80.0 % Lymphocytes (%) (Auto) 32.5 10.0-50.0 % Monocytes (%) (Auto) 8.2 0.0-12.0 % Eosinophils (%) (Auto) 1.8 0.0-7.0 % Basophils (%) (Auto) 0.3 0.0-2.0 % Neutrophils # (Auto) 3.2 1.6-8.6 10 ^3/uL Lymphocytes # (Auto) 1.8 0.4-5.4 10 ^3/uL Monocytes # (Auto) 0.5 0-1.3 10 ^3/uL Eosinophils # (Auto) 0.1 0-0.8 10 ^3/uL Basophils # (Auto) 0 0-0.2 10 ^3/uL Nucleated Red Blood Cells 0.1 % Prothrombin Time 9.8 9.3-11.8 sec Prothrombin Time INR 0.92 0.9-1.15 Activated Partial Thromboplast Time 24.5 24.5-34.5 SEC Sodium Level 137 136-145 mmol/L Potassium Level 4.2 3.5-5.1 mmol/L Chloride Level 106 98-107 mmol/L Carbon Dioxide Level 23 20-31 mmol/L Anion Gap 8 5-15 Blood Urea Nitrogen 11 9-23 mg/dL Creatinine 0.74 0.550-1.02 mg/dL Glomerular Filtration Rate Calc 115 >90 mL/min BUN/Creatinine Ratio 14.9 10.0-20.0 Serum Glucose 60 L 74-106 mg/dL Uric Acid 9.8 H 3.1-7.8 mg/dL Calcium Level 9.4 8.7-10.4 mg/dL Total Bilirubin 0.8 0.2-1.0 mg/dL Aspartate Amino Transferase (AST) 26 13-40 U/L Alanine Aminotransferase (ALT) 22 7-40 U/L Alkaline Phosphatase 354 H 46-116 U/L Total Protein 6.5 5.7-8.2 g/dL Albumin 3.9 3.2-4.8 g/dL Urine Color Yellow Yellow Urine Clarity Turbid H Clear Urine pH 6.5 5.0-9.0 Urine Specific [place] 1.020 1.001-1.035 Urine Protein Trace H Negative Urine Ketones Trace Negative Urine Blood Negative Negative /uL Urine Nitrite Negative Negative Urine Bilirubin Negative Negative Urine Urobilinogen Normal Negative mg/dL Urine Leukocyte Esterase Negative Negative /uL Urine RBC 1 0 - 4 /hpf Urine Microscopic WBC 2 0-5 /HPF Urine Squamous Epithelial Cells Few <5 /hpf Urine Bacteria Few H None Seen /hpf Urine Glucose Normal Normal mg/dL Urine Creatinine 140.65 H 30.0-125.0 mg/dL Urine Protein/Creatinine Ratio 0.19 Urine Total Protein 26.1 H 1-14 mg/dL Test 07/16/24 13:14 Range/Units Urine Total Protein 24 Hour <149.1 mg/24 Hr Assessment Assessment 24yo IUP@39.0wks Induction of Labor for PIH Category I EFM Intact Membranes GBS unknown Plan Plan Start IV pitocin to continue IOL Continue IV clindamycin for GBS prophylaxis. Pt allergic to PCN/ampicillin, reaction is rash all over her body. monitoring per order Pain mgmt PRN Frequent position changes in and out of bed encouraged Limit SVE unless necessary Intrauterine resuscitation PRN Anticipate CNM co-managing with Dr. Collier Plan discussed with: Patient, Other (partner) Visit Coding OBGYN Date of Service: Jul 17, 2024 Billing Provider: VIOLA CIFUENTES CNM CATTLE INSPECTOR Common Visit Codes: [id number] INP/OBS CARE(HIGH) VIOLA CIFUENTES CNM Jul 17, 2024 16:50
[2024-07-17] MEDS ORDERED: MINERAL OIL TOPICAL 10ml TOP ONE (17:24)
[2024-07-17] MEDS ORDERED: DOCUSATE SOD 100 MG CAP PO ONE (18:00)
--- NOTE | 2024-07-17 18:32 | LDN2 ---
Labor and Delivery Note Date 07/17/24 Age 24 1 Para 1 AB N/A EDC 07/23/2024 EGA 39.1 weeks Diagnosis IOL for PIH then Vaginal Delivery: VTX Vacuum Assisted: No Placenta: Spontaneous Sex: Male Weight Pending Apgars 8/9 Nuchal Cord Transected: No Amniotic Fluid: Meconium Stained Anesthesia Epidural anesthesia Episiotomy: No Extension: No Repaired with Perineal abrasion, hemostatic. Not repaired. 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 Jarvis Comments/Significant Med Izabel At 1736 this 24yo now delivered a viable Male by w/ APGARS 8/9. JUAN A. RT at bedside prior to delivery. Infant placed skin to skin on pts chest. Cord clamped and cut for acuity. Cord gases sent. Intact 3-vessel cord placenta delivered spontaneously, Lucy. Pitocin IV bolus started. Placenta sent to pathology. Patient had epidural anesthesia. Cervix/vagina inspected (intact) and perineal abrasion present which did not require repair. Fundus 3 below U, firm, midline, and light lochia. QBL 400ml. VSS. Count correct x2. Patient to care and baby to couplet care, both stable. Visit Coding OBGYN Date of Service: Jul 17, 2024 Billing Provider: VIOLA CIFUENTES CNM POLITICAL DIRECTOR Common Visit Codes: PROCEDURE ONLY POLITICAL DIRECTOR Procedure Codes: [id number] DEL INCLUDING JUAN CASTANEDA STDDominick MDWF Jul 17, 2024 18:32
[2024-07-17] MEDS: LACT. RINGERS/OXYTOCIN 20UNITS 500 ML IV ONE (22:08)
[2024-07-17 23:00] VITALS: BP 135/72; PULSE 105; RESP 16; TEMP 98; O2SAT 99
[2024-07-17 23:45] VITALS: BP 135/72; PULSE 105; RESP 16; TEMP 98; O2SAT 99
--- NOTE | 2024-07-18 00:40 | DVHPN2 ---
Progress Note Date Seen: Jul 18, 2024 Subjective S: bleeding is less, eating food without issues, denies lightheaded/dizziness, pain well controlled with oral medications, no concerns with urinating, passing flatus, no BM yet, ambulating well, /formula. Denies REED/vision changes/RUQ pain. vital signs Vital Sign Date Time Temp Pulse Resp B/P (MAP) Pulse Ox O2 Delivery O2 Flow Rate FiO2 07/17/24 23:45 98.0 105 16 135/72 (93) 99 98.0 07/17/24 22:20 Room Air Total Intake and Output 07/17/24 07/17/24 07/18/24 15:00 23:00 07:00 Output Total 800 ml Balance -800 ml medications Current Medications Medications Dose Ordered Sig/Lala Route Start Time Stop Time Status Last Admin Dose Admin Lactated Ringer's 1,000 ml @ 125 mls/hr Q8H IV 07/16/24 15:15 07/17/24 09:04 125 MLS/HR Witch Maci 1 pad PRN PRN TOP 07/16/24 15:15 07/16/24 19:30 1 PAD Sodium Lauryl Sulfate 240 ml PRN PRN TOP 07/16/24 15:15 07/16/24 19:30 240 ML Benzocaine 1 applic PRN PRN TOP 07/16/24 15:15 07/16/24 19:30 1 APPLIC Butorphanol Tartrate 1 mg Q4HPRN PRN IV 07/16/24 15:15 Hold Butorphanol Tartrate 2 mg Q4HPRN PRN IV 07/16/24 15:15 Lidocaine HCl 20 ml ONCE PRN IJ 07/16/24 15:15 Cancel Penicillin G Potassium [id number] units/Dextrose 50 ml @ 100 mls/hr Q4H IV 07/16/24 19:30 UNV Oxytocin 1,000 ml @ 6 ml/hr Q24H IV 07/17/24 11:15 Cancel Ibuprofen 600 mg Q6HP PRN PO 07/17/24 18:00 Acetaminophen 650 mg Q6HPRN PRN PO 07/17/24 18:00 Prenat Multivit/ [place]/Iron/Folic Ac 1 DAILY PO 07/18/24 10:00 laboratory and microbiology Laboratory Tests 07/16/24 13:53 Test 07/16/24 13:53 Range/Units Serum Glucose 60 L 74-106 mg/dL Objective O: VSS Chest: heart sounds normal and lung sounds clear bilaterally Abd: soft, non-tender, fundus at U/firm/midline, active bowel sounds, no rebound or guarding Perineum: intact, no erythema/edema noted Ext: Non-tender, No edema, 2+ BLE DTRs Lochia: minimal See lab results Assessment/Plan A: 24yo now PPD#1 s/p PIH Rh+ Rubella Immune Breast and formula feeding P: D/C home today Rx sent to pharmacy precautions and preeclampsia warning signs reviewed F/U with [facility] office [place] [address] Collier consulted, agrees with POC. Plan discussed with: Patient, Other (partner) Visit Coding OBGYN Date of Service: Jul 18, 2024 Billing Provider: VIOLA CIFUENTES CNM TWISTER TENDER Common Visit Codes: [id number] INP/OBS CARE(HIGH) VIOLA CIFUENTES CNM Jul 18, 2024 00:40
[2024-07-18] MEDS ORDERED: PRENCAP69 PO ×2 (00:44)
[2024-07-18] MEDS ORDERED: PREN-96 PO ×2 (00:44)
[2024-07-18] MEDS ORDERED: IBU600T PO ×2 (00:44)
[2024-07-18 02:47] VITALS: BP 105/59; PULSE 88; RESP 15; TEMP 98.8; O2SAT 99
[2024-07-18] MEDS: ACETAMINOPHEN 325 MG TAB PO PRN (04:05)
[2024-07-18 07:00] VITALS: BP 111/65; PULSE 55; RESP 16; TEMP 97.8; O2SAT 95
[2024-07-18] MEDS: IBUPROFEN 600 MG TAB PO PRN (07:35)
[2024-07-18 09:42] LABS: Basophils # (auto) 0 10 ^3/uL (0-0.2); Basophils % (auto) 0.2 % (0.0-2.0); Eosinophils # (auto) 0.1 10 ^3/uL (0-0.8); Eosinophils % (auto) 0.5 % (0.0-7.0); Hematocrit 33.7 % (36.0-46.0); Hemoglobin 11.7 g/dL (12.2-16.2); Lymphocytes # (auto) 2.5 10 ^3/uL (0.4-5.4); Lymphocytes % (auto) 22.6 % (10.0-50.0); Mean Corpuscular Hemoglobin 30.9 pg (28.0-32.0); Mean Corpuscular Hgb Conc. 34.6 g/dL (32.0-36.0); Mean Corpuscular Volume 89.3 fL (80.0-100.0); Monocytes # (auto) 0.6 10 ^3/uL (0-1.3); Monocytes % (auto) 5.4 % (0.0-12.0); Neutrophils # (auto) 7.8 10 ^3/uL (1.6-8.6); Neutrophils % (auto) 71.3 % (37.0-80.0); Platelet Count (auto) 186 10^3/uL (140-450); Red Blood Cells 3.77 10^6/uL (4.0-5.20); Red Cell Distribution Width 13.1 % (11.8-14.3)
[2024-07-18] MEDS ORDERED: PRENATAL VITAMIN TAB PO SCH (10:00)
[2024-07-18 11:00] VITALS: BP 130/73; PULSE 80; RESP 16; TEMP 98.6; O2SAT 95
[2024-07-18 15:00] VITALS: BP 116/58; PULSE 63; RESP 16; TEMP 98.2; O2SAT 97
--- NOTE | 2024-07-18 15:30 | DVHDS2 ---
Obstetrics Discharge Summary Obstetrics Discharge Summary Date of Admission: Jul 16, 2024 Date of Discharge: Jul 18, 2024 Reason For Admission: Induction of Labor Procedures: NST, Ultrasound Intrapartum Procedures: Spontaneous vaginal deliv Procedures: Hct/date: (07/18/2024), Hgb/date: (07/18/2024) Operative Complicat: None Discharge Diagnosis: Term -Delivered Discharge Information: Activity ( as tolerated, no heavy lifting and nothing in the vagina for 6 weeks), Diet (Routine), Medications (RX sent), Instructions (Routine), Discharge to (Home), Accompanied by (Partner), Discarge date (07/18/2024) Visit Coding OBGYN Date of Service: Jul 18, 2024 Billing Provider: VIOLA CIFUENTES CNM BUSINESS TECHNOLOGY ARCHITECT Common Visit Codes: [id number] DISCH DAY <30MIN JUAN CASTANEDA MDWF Jul 18, 2024 15:30
== END 2024-07-18 18:29 | disposition home or self-care (01) | DRG 560 ==
LOC: LDRP 13:05 → OBSVTOIN 14:48 → LDRP 23:28
PROVIDERS: ADMIT Obstetrics & Gynecology; ATTEND Obstetrics & Gynecology
PROC: 10E0XZZ Delivery of Products of Conception, External Approach (ICD-10-PCS; principal; 2024-07-17)
PROC: 3E0R3BZ Introduction of Anesthetic Agent into Spinal Canal, Percutaneous Approach (ICD-10-PCS; 2024-07-17)
PROC: 00HU33Z Insertion of Infusion Device into Spinal Canal, Percutaneous Approach (ICD-10-PCS; 2024-07-17)
PROC: 3E0DXGC Introduction of Other Therapeutic Substance into Mouth and Pharynx, External Approach (ICD-10-PCS; 2024-07-17)
PROC: 3E033VJ Introduction of Other Hormone into Peripheral Vein, Percutaneous Approach (ICD-10-PCS; 2024-07-17)
DX: O13.4 Gestational [pregnancy-induced] hypertension without significant proteinuria, complicating childbirth (principal); Z37.0 Single live birth; O71.82 Other specified trauma to perineum and vulva; O77.0 Labor and delivery complicated by meconium in amniotic fluid; Z3A.39 39 weeks gestation of pregnancy; Z88.0 Allergy status to penicillin
CPT/HCPCS: 36415; 59409; 62282; 76819; 80053; 81001; 82570; 84156; 84550; 85025; 85610; 85730; 86780; 86850; 86900; 86901; 94760; 94762; 96360; 96361; 96365; 96366; G0378; J2590; J3490